=== PATIENT | male | born 1995 | race African-American/Black ===

== ENCOUNTER 2017-03-25 06:59 | Emergency (ER) | payer SELFPAY ==
[~2017-03-25] VITALS: Ht 180.3 cm; Wt 87.0 kg
[2017-03-25 07:00] VITALS: BP 150/91; PULSE 84; RESP 16; TEMP 98.6; O2SAT 100
--- NOTE | 2017-03-25 07:55 | PD ---
HPI Chief Complaint: Complaint Time Seen by Provider: 07:30 Travel History International Travel<30 days: No Contact w/Intl Traveler<30days: No Traveled to known affect area: No History of Present Illness HPI 22yo M with no PMH presents to the ED with c/o a lump in his left groin for 1 day. Said it hurts when you touch it. Denies any fever, chest pain, sob, n/v, abdominal pain, dysuria, hematuria, testicular pain, penile rash or discharge. Pt said he has had this before in June and it went away by itself. Pt also complaining of whitish discharge on penis and some penile swelling. PFSH Past Medical History Medical History: Denies Significant Hx Past Surgical History Surgical History: No Previous Surgery Social History Alcohol Use: No Tobacco Use: No Substance Use: Yes (pot) Allergies-Medications (Allergen,Severity, Reaction): Coded Allergies: No Known Allergies (Unverified , 03/25/17) Reported Meds & Prescriptions Reported Meds & Active Scripts Active Clotrimazole Topical (Clotrimazole) 1% Soln 1 Applic TOPICAL BID 5 Days Review of Systems Except as stated in HPI: all other systems reviewed are Neg Physical Exam Narrative GENERAL: 22yo M not in distress. SKIN: Focused skin assessment warm/dry. HEAD: Atraumatic. Normocephalic. EYES: Pupils equal and round. No scleral icterus. No injection or drainage. CARDIOVASCULAR: Regular rate and rhythm. No murmur appreciated. RESPIRATORY: No accessory muscle use. Clear to auscultation. Breath sounds equal bilaterally. GASTROINTESTINAL: Abdomen soft, non-tender, nondistended. No rebound tenderness or guarding. : +1cm lymphadenopathy in left groin ttp. Uncircumcised penis. Foreskin easily retracted and put back. +Small amount of whitish debris when we retract back the foreskin on penis. No fluctuance, no erythema. No testicular ttp bilaterally. Bilateral testes descended equally. No rash on penile shaft. No penile discharge. Foreskin easily retracted and place back. MUSCULOSKELETAL: No obvious deformities. No clubbing. No cyanosis. No edema. NEUROLOGICAL: Awake and alert. No obvious cranial nerve deficits. Motor grossly within normal limits. Normal speech. PSYCHIATRIC: Appropriate mood and affect; insight and judgment normal. Data Data Last Documented VS Vital Signs Date Time Temp Pulse Resp B/P (MAP) Pulse Ox O2 Delivery O2 Flow Rate FiO2 03/25/17 07:00 98.6 84 16 150/91 (110) 100 Room Air Orders Orders Acetaminophen (Tylenol) (03/25/17 08:00) Gc And Chlamydia Pcr (03/25/17 07:55) Ed Discharge Order (03/25/17 09:49) Labs Laboratory Tests Test 03/25/17 08:05 Chlamydia trachomatis DNA (PCR) NOT DETECTED Neisseria gonorrhoeae DNA (PCR) NOT DETECTED MDM Medical Decision Making Medical Screen Exam Complete: Yes Emergency Medical Condition: Yes Differential Diagnosis Reactive lymphadenopathy vs. STI vs. balanitis Narrative Course 22yo M with left groin lump which found to be a lymph node on exam. There is some debris on penis when foreskin is retracted, mild tenderness on palpation of glans of penis. Pt is well appearing. Acetaminophen ordered but pt refused. This may be early balanitis and I encouraged better hygiene but pt wants medication since he does not have primary care physician. I informed him to do saline wash twice and day and if still with symptoms, can start clotrimazole topical. GC/chlamydia sent. Return precautions given. Diagnosis Primary Impression: Balanitis Patient Instructions: General Instructions Departure Forms: Tests/Procedures Additional Instructions: Please clean the foreskin area twice a day and if symptoms still there, your can start clotrimazole cream. Return to the ED or primary care physician's office if symptoms worsen. Med/Other Pt SpecificInfo: Prescription(s) given Scripts Clotrimazole Topical (Clotrimazole Topical) 1% Soln 1 APPLIC TOPICAL BID for Fungal Infection for 5 Days, #10 ML 0 Refills Prov: Nissa Akers 03/25/17 Disposition: 01 DISCHARGE HOME Condition: Stable Nissa Akers Mar 25, 2017 07:55
[2017-03-25] MEDS ORDERED: ACETAMINOPHEN 325 MG TAB PO ONE (08:00)
[2017-03-25] MEDS ORDERED: CLOTR1%T TOPICAL (09:49)
[2017-03-25 10:41] LABS: CHLAMYDIA PCR NOT DETECTED (NOT DETECT); NEISSERIA PCR NOT DETECTED (NOT DETECT)
== END 2017-03-25 10:36 | disposition home or self-care (01) ==
LOC: NEPC 06:59
DX: N48.1 Balanitis (principal)
CPT/HCPCS: 87491; 87591; 99284